=== PATIENT | male | born 1970 | race Caucasian/White ===

== ENCOUNTER → 2019-08-25 10:56 | Outpatient (CLI) | payer OTHER, SELFPAY ==
--- NOTE | 2019-08-25 | XR_ITS ---
PROCEDURE: XR CHEST 2V CLINICAL HISTORY: COMPARISON: No exams were available for comparison FINDINGS: The cardiomediastinal silhouette and pulmonary vascularity are within normal limits. The lungs are clear without infiltrates, suspicious nodules, or pleural effusions. No acute bony abnormalities. IMPRESSION: No acute findings. Dictated by: Alcides Cox 08/25/2019 12:59 Electronically signed by Alcides Cox in [facility] 08/25/2019 12:59
== END ==
PROVIDERS: PCP Nurse Practitioner Family; Visit Provider Nurse Practitioner Family
DX: R05 Cough (principal)
CPT/HCPCS: 71046

== ENCOUNTER → 2019-11-12 12:28 | Outpatient (POV) | payer OTHER, SELFPAY | PROVIDERS: PCP Nurse Practitioner Family; Visit Provider Specialist | DX: M79.605 Pain in left leg (principal); M79.604 Pain in right leg; M54.5 Low back pain | CPT/HCPCS: 95886; 95909 ==

== ENCOUNTER → 2019-11-12 12:32 | Outpatient (CLI) | payer OTHER, SELFPAY ==
[2019-11-12 15:10] LABS: Chloride 99 mmol/L (98-107); Potassium 4.4 mmoL/L (3.5-5.1); Sodium 132 mmol/L (136-145)
[2019-11-12 15:13] LABS: Blood Urea Nitrogen 24 mg/dl (9-20); Estimated Glomerular Filt Rate 90 ml/min (>60); GFR (African American) 109 ML/MIN (>60)
[2019-11-12 15:14] LABS: Anion Gap 11.4 mEq/L (5-15); Calcium 9.7 mg/dl (8.4-10.2); Carbon Dioxide 26 mmol/L (22.0-30.0); Glucose 111 mg/dl (74-100)
== END ==
PROVIDERS: Visit Provider Specialist
DX: L81.3 Cafe au lait spots (principal); M54.5 Low back pain; M79.604 Pain in right leg; M79.605 Pain in left leg
CPT/HCPCS: 36415; 80048

== ENCOUNTER → 2019-11-12 14:20 | Outpatient (CLI) | payer OTHER, SELFPAY ==
--- NOTE | 2019-11-12 14:20 | MR_ITS ---
PROCEDURE: MR LUMBAR SPINE WO/W CON CLINICAL INDICATION: evaluation for fibroma, nerve entrapment Low back pain with bilateral leg pain and tingling, nerve entrapment COMPARISON: XR CHEST 2V from 08/25/2019 TECHNIQUE: Standard multiplanar multiecho sequences are performed without contrast. 3-D MIP and myelographic images are also rendered and reviewed FINDINGS: The spinal cord ends at the L1-L2 level. There is normal alignment. L1-L2: Unremarkable. L2-L3: Unremarkable. L3-L4: Unremarkable. L4-5: Degenerative disc disease with bulging disc with facet and ligamentum hypertrophy. There is bilateral lateral recess and foraminal narrowing. There is transverse narrowing of the canal at 9 mm. The bulging disc is slightly eccentric toward the left. There is moderate bilateral foraminal narrowing slightly greater on the left. L5-S1: Degenerative disc disease with endplate hypertrophic change. There is minimal retrolisthesis of L5 the with lipping of the posterior inferior aspect of the L5 vertebral body at with bulging disc osteophyte complex. There is moderate facet and ligamentum hypertrophy with resultant severe bilateral foraminal narrowing with impingement upon the exiting L5 nerve roots. There is narrowing of the canal at this level. The the there is severe bilateral foraminal narrowing slightly greater on the left.. There is severe bilateral lateral recess narrowing slightly greater on the right No extruded herniated disc is evident No abnormal enhancement IMPRESSION: 1. L4-5: Degenerative disc disease with bulging disc with facet and ligamentum hypertrophy. There is bilateral lateral recess and foraminal narrowing. There is transverse narrowing of the canal at 9 mm. The bulging disc is slightly eccentric toward the left. There is moderate bilateral foraminal narrowing slightly greater on the left. 2. L5-S1: Degenerative disc disease with endplate hypertrophic change. There is minimal retrolisthesis of L5 the with lipping of the posterior inferior aspect of the L5 vertebral body at with bulging disc osteophyte complex. There is moderate facet and ligamentum hypertrophy with resultant severe bilateral foraminal narrowing with impingement upon the exiting L5 nerve roots. There is narrowing of the canal at this level. The the there is severe bilateral foraminal narrowing slightly greater on the left.. There is severe bilateral lateral recess narrowing slightly greater on the right 3. No extruded herniated disc. Dictated by: Juan Preeira MD 11/14/2019 15:32 Electronically signed by Juan Pereira MD in [facility] 11/14/2019 15:32
== END ==
PROVIDERS: PCP Nurse Practitioner Family; Visit Provider Specialist
DX: L81.3 Cafe au lait spots (principal); M54.5 Low back pain; M79.604 Pain in right leg; M79.605 Pain in left leg
CPT/HCPCS: 72158; 76376; A9576

== ENCOUNTER 2020-01-02 11:00 | Outpatient (RCR) | payer OTHER, SELFPAY | END 2020-01-10 16:23 | disposition home or self-care (01) | LOC: PT.CARL 11:00 | PROVIDERS: PCP Nurse Practitioner Family; Visit Provider Neurological Surgery | DX: M54.9 Dorsalgia, unspecified (principal); M47.819 Spondylosis without myelopathy or radiculopathy, site unspecified; M54.16 Radiculopathy, lumbar region | CPT/HCPCS: 97010; 97012; 97014; 97110; 97140; 97163; G0283 ==

== ENCOUNTER 2020-09-09 18:01 | Emergency (ER) | payer MEDICAID, SELFPAY ==
[2020-09-09 18:02] VITALS: BP 159/95; PULSE 64; RESP 16; TEMP 36.6; O2SAT 98; BMI 31.4
--- NOTE | 2020-09-09 18:10 | ECG_ITS ---
APPROVED REPORT Exam: Resting ECG HR:57 bpm ECG Measurements Heart Rate 57 AXES ND 186 P 49 QRSd 94 QRS -23 QT 412 T 38 QTc 401 Conclusion Sinus bradycardia Otherwise normal ECG Electronically signed by : Adan Lee, 09/10/2020 10:18:37
--- NOTE | 2020-09-09 18:10 | XR_ITS ---
PROCEDURE: XR CHEST 2V CLINICAL HISTORY: Chest pain COMPARISON: CR XR CHEST 2V from 08/25/2019 FINDINGS: The cardiomediastinal silhouette and pulmonary vascularity are within normal limits. The lungs are clear without infiltrates, suspicious nodules, or pleural effusions. There is slight elevation of the right hemidiaphragm. This is not significantly changed. No acute bony findings. IMPRESSION: No acute findings. Dictated by: Juan Pereira MD 09/10/2020 06:09 Juan Pereira MD in [facility] 09/10/2020 06:09
[2020-09-09 18:25] LABS: Basophils # 0.1 K/mm3 (0-0.2); Basophils % 0.5 % (0.1-2.0); Eosinophils # 0.2 K/mm3 (0.0-0.4); Hematocrit 44.7 % (42.0-52.0); Hemoglobin 14.9 g/dL (14.1-18.0); Lymphocytes # 2.8 K/mm3 (0.7-4.5); Mean Corpuscular HGB Conc 33.4 g/dL (31.8-35.4); Mean Corpuscular Hemoglobin 28.5 pg (27.0-31.2); Mean Corpuscular Volume 85.3 fl (80-94); Mean Platelet Volume 6.5 fl (7.4-10.4); Monocytes # 0.7 K/mm3 (0.1-1.0); Monocytes % 6.4 % (1.7-9.3); Neutrophils # 6.4 K/mm3 (1.8-7.8); Platelet Count 315 K/mm3 (142-424); Red Blood Count 5.23 M/mm3 (4.60-6.20); Red Cell Distribution Width 13.2 % (11.5-17.5); White Blood Count 10.2 K/mm3 (4.8-10.8)
[2020-09-09 18:27] LABS: Chloride 104 mmol/L (98-107); Sodium 139 mmol/L (136-145)
[2020-09-09 18:28] LABS: Potassium 3.9 mmoL/L (3.5-5.1)
[2020-09-09 18:31] LABS: Anion Gap 10.9 mEq/L (5-15); Blood Urea Nitrogen 17 mg/dl (9-20); Calcium 9.4 mg/dl (8.4-10.2); Carbon Dioxide 28 mmol/L (22.0-30.0); Creatinine Clearance Estimated 130 mL/min (50-200); Estimated Glomerular Filt Rate 102 ml/min (>60); GFR (African American) 124 ML/MIN (>60); Glucose 106 mg/dl (74-100)
[2020-09-09 18:32] VITALS: BP 157/88; PULSE 70; RESP 15; O2SAT 97
--- NOTE | 2020-09-09 18:45 | HMH.EDGENADL ---
ED Disposition Condition on Discharge: Good - Critical Care Critical Care Time: No <BrentjoieLv - Last Filed: 09/09/20 20:09> <Gregory Rhodes - Last Filed: 09/09/20 21:33> Clinical Impression: Chest pain Qualifiers: Chest pain type: unspecified Qualified Code(s): R07.9 - Chest pain, unspecified Cholelithiasis Qualifiers: Cholelithiasis location: gallbladder Cholecystitis presence: without cholecystitis Biliary obstruction: without biliary obstruction Qualified Code(s): K80.20 - Calculus of gallbladder without cholecystitis without obstruction Disposition: Home, Self-Care Instructions: DI for Atypical Chest Pain Additional Instructions: see pcp for follow up Referrals: Kassandra Knox [Primary Care Provider] - Attestation: On 09/09/20, the high probability of a clinically significant, sudden or life threatening deterioration of the following system(s) required my full and direct attention, intervention and personal management. The time I documented below is in addition to time spent performing reported procedures but includes the following listed in this critical care notation. Medical Decision Making - Ibrahima Inquiry Pt receiving controlled substance: No - Lab Data Result diagrams: 09/09/20 18:03 09/09/20 18:03 - NATALIIA Score for Non-Stemi Age of Patient: 50-59 years old Heart Rate: 50-69 bpm Systolic Blood Pressure: 140-159 mmHg Serum Creatinine: 0.80-1.19 mg/dl CHF [place] Class: I-No CHF Other Risk Factors: None Non-Stemi Risk Score: 75 <BrentjoieLv - Last Filed: 09/09/20 20:09> - Lab Data Lab results reviewed: Yes: I reviewed the patient's lab results. Result diagrams: 09/09/20 18:03 09/09/20 18:03 - CT Data CT Scan: Chest Time Received: 21:[address] Reviewed: Yes: I have viewed the radiologist's interpretation Preliminary Findings: Normal/NAD <Gregory Rhodes - Last Filed: 09/09/20 21:33> Vital Signs: 09/09/20 18:02 09/09/20 18:32 09/09/20 19:00 Temperature 98 F Temperature Source Oral Pulse Rate [Right Radial] 64 70 59 L Respiratory Rate 16 15 17 Blood Pressure [Right Arm] 159/95 H 157/88 H 166/99 H Blood Pressure Mean [Right Arm] 116 111 121 Blood Pressure Source [Right Arm] Automatic Cuff Automatic Cuff Blood Pressure Position [Right Arm] Supine Supine 02 Sat by Pulse Oximetry 98 97 97 Oxygen Delivery Method Room Air Room Air 09/09/20 19:30 09/09/20 20:00 Temperature Temperature Source Pulse Rate [Right Radial] 60 60 Respiratory Rate 18 15 Blood Pressure [Right Arm] 157/104 H 160/97 H Blood Pressure Mean [Right Arm] 121 118 Blood Pressure Source [Right Arm] Automatic Cuff Automatic Cuff Blood Pressure Position [Right Arm] Supine Supine 02 Sat by Pulse Oximetry 98 96 Oxygen Delivery Method Room Air Room Air - Lab Data Lab Results 09/09/20 18:03: WBC 10.2, RBC 5.23, Hgb 14.9, Hct 44.7, MCV 85.3, MCH 28.5, MCHC 33.4, RDW 13.2, Plt Count 315, MPV 6.5 L, Neut % (Auto) 63.0, Lymph % (Auto) 28.0, [place] % (Auto) 6.4, Eos % (Auto) 2.0, Baso % (Auto) 0.5, Neut # (Auto) 6.4, Lymph # (Auto) 2.8, [place] # (Auto) 0.7, Eos # (Auto) 0.2, Baso # (Auto) 0.1 09/09/20 18:03: Sodium 139, Potassium 3.9, Chloride 104, Carbon Dioxide 28, Anion Gap 10.9, BUN 17, Creatinine 0.80, Estimated Creat Clear 130, Estimated GFR 102, Est GFR ( Amer) 124, Glucose 106 H, Calcium 9.4, Troponin I < 0.01 09/09/20 18:08: D-Dimer 0.79 H Orders (Tests/Meds): ED MEDICATIONS Generic Name Dose Route Start Last Admin Trade Name Freq PRN Reason Stop Dose Admin Nitroglycerin 0.4 mg 09/09/20 18:10 Nitroglycerin 0.4mg Sl Tablet SL 09/10/20 18:10 [id number] PRN Chest Pain Discontinued Medications Generic Name Dose Route Start Last Admin Trade Name Freq PRN Reason Stop Dose Admin Aspirin 324 mg 09/09/20 18:10 09/09/20 18:36 Aspirin 81mg Chewable Tablet PO 09/09/20 18:11 324 mg ONCE ONE Administration Iopamidol 70 ml 09/09/20 20:37 09/09/20
[2020-09-09 18:47] LABS: Troponin I < 0.01 ng/ml (0.00-0.034)
[2020-09-09 19:00] VITALS: BP 166/99; PULSE 59; RESP 17; O2SAT 97
[2020-09-09 19:30] VITALS: BP 157/104; PULSE 60; RESP 18; O2SAT 98
[2020-09-09 19:45] LABS: D-Dimer 0.79 ug/mL (0.0-0.5)
[2020-09-09 20:00] VITALS: BP 160/97; PULSE 60; RESP 15; O2SAT 96
--- NOTE | 2020-09-09 20:05 | CT_ITS ---
PROCEDURE: CT ANGIO CHEST CLINCIAL INDICATION: cp, elevated d-dimer Chest pain, elevated D-dimer COMPARISON: No exams were available for comparison TECHNIQUE: IV Contrast: 70ML Isovue 370 Axial images obtained with sagittal and coronal reformats. All CT scans at the facility use one or more dose reduction, viz: automated exposure control, ma/kV adjustment per patient size (including targeted exams where dose is matched to indication, i.e. head), or iterative reconstruction technique. FINDINGS: HEART AND MEDIASTINAL STRUCTURES: No evidence of pulmonary embolus, aortic aneurysm, or aortic dissection. There is mild generalized thickening of the esophagus. LUNGS AND PLEURAL SPACES: Calcified granuloma left lower lobe BONY STRUCTURES: No acute bony abnormalities apparent. UPPER ABDOMEN: Cholelithiasis. There is mild haziness of the mesenteric fat centrally. Colonic diverticulosis. ADDITIONAL FINDINGS: No other significant abnormalities.No evidence of pulmonary embolus, aortic aneurysm, or aortic dissection.No evidence of pulmonary embolus, aortic aneurysm, or aortic dissection.. Mild nonspecific thickening of the esophagus. IMPRESSION: 1. No evidence of pulmonary embolus, aortic aneurysm, or aortic dissection. 2. Cholelithiasis. 3. Mild nonspecific thickening of the esophagus. Dictated by: Juan Pereira MD 09/10/2020 09:02 Juan Pereira MD in [facility] 09/10/2020 09:02
[2020-09-09 21:34] LABS: Troponin I < 0.01 ng/ml (0.00-0.034)
[2020-09-09 21:53] VITALS: BP 154/70; PULSE 65; RESP 16; TEMP 36.8; O2SAT 98
== END 2020-09-09 21:54 | disposition home or self-care (01) ==
PROVIDERS: Emergency Provider Emergency Medicine; PCP Nurse Practitioner Family
DX: K80.20 Calculus of gallbladder without cholecystitis without obstruction (principal); K21.9 Gastro-esophageal reflux disease without esophagitis; E78.5 Hyperlipidemia, unspecified; I10 Essential (primary) hypertension; F33.1 Major depressive disorder, recurrent, moderate
CPT/HCPCS: 71046; 71275; 80048; 84484; 85025; 85378; 93005; 96374; 99284; Q9967

== ENCOUNTER → 2020-09-27 07:17 | Outpatient (CLI) | payer MEDICAID, SELFPAY ==
[2020-09-27 09:07] LABS: Coronavirus 19 IgG Antibody Negative (Negative); Coronavirus 19 IgM Antibody Negative (Negative)
== END ==
PROVIDERS: Visit Provider Internal Medicine Gastroenterology
DX: Z01.818 Encounter for other preprocedural examination (principal); Z20.822 Contact with and (suspected) exposure to COVID-19; Z12.11 Encounter for screening for malignant neoplasm of colon
CPT/HCPCS: 36415; 86328

== ENCOUNTER 2020-09-29 09:31 | Day surgery (SDC) | payer MEDICAID, SELFPAY ==
[2020-09-29 10:07] VITALS: BP 169/83; PULSE 50; RESP 18; TEMP 36.2; O2SAT 100
[2020-09-29 10:44] VITALS: O2SAT 97
--- NOTE | 2020-09-29 10:59 | P.PCN_ITS ---
[facility] Procedure Note Procedure Note:: Upper Endoscopy Procedure Report: Esophagogastroduodenoscopy with cold biopsies Endoscopost: Tesfaye Novoa II, MD Referring Physician: BRITTANY Gonzalez Date of Procedure: September 29, 2020 Equipment: Olympus GIF 190 standard upper endoscope Sedation: MAC sedation Indications: Mr. Baez is a 50-year-old gentleman who is here for high risk upper endoscopy secondary to family history of stomach cancer. His brother had gastric cancer at the age of 45. The patient reports no heartburn, reflux, dysphagia, indigestion or dyspepsia. He has had no weight loss or melena. Procedure: Prior to the procedure, a history and physical exam was performed, and patient's medications and allergies were reviewed. The risks, benefits and alternatives of the sedation and procedure were discussed with the patient. All questions were answered and informed consent was obtained. The patient was brought to the procedure room. Patient identification and proposed procedure were verified by the physician and the nurse. The patient was placed in a left lateral decubitus position and the scope was passed under direct vision. Throughout the procedure, the patient's blood pressure, pulse, and oxygen saturations were monitored continuously. The upper GI endoscopy was accomplished without difficulty. The patient tolerated the procedure well. Findings: The scope was passed directly into the upper esophagus and advanced to the third portion of the duodenum. The post bulbar duodenum and duodenal bulb were normal with normal mucosa and conniventes. The scope was withdrawn through a normal duodenal bulb and pylorus into the stomach. There was some very mild chronic gastritis of the body and fundus (type A gastritis). Upon retroflexion there was no hiatal hernia. 2 biopsies were taken in the antrum and along the lesser curvature for histology to rule out gastritis and/or H pylori. The scope was then withdrawn into the esophagus. There was a single tongue of salmon- colored mucosa in the distal esophagus that was biopsied to rule out short segment Beltran's esophagus. The remainder of the esophageal mucosa was normal. Impression: 1. Possible short segment Beltran's esophagus 2. Mild chronic gastritis (type A gastritis) Plan: I will follow-up the biopsies. If there is evidence of short segment Beltran's esophagus I would continue surveillance at a 5-year interval. I would also recommend long-term PPI therapy. Also, based upon his family history, I will exclude H. pylori (risk factor for gastric cancer) with these gastric biopsies.
--- NOTE | 2020-09-29 11:17 | HMH.PROC ---
[facility] Procedure Note Procedure Note:: Colonoscopy Procedure Report: Colonoscopy Endoscopist: Tesfaye Novoa II, MD Referring physician: BRITTANY Gonzalez Date of Procedure: September 29, 2020 Equipment: Olympus 190 variable stiffness pediatric colonoscope Sedation: MAC sedation Indication: Mr. Baez is a 50-year-old gentleman who is here for initial screening colonoscopy. He reports no abdominal pain, weight loss, change in his bowel habits or rectal bleeding. He reports no family history of colon cancer. His brother had gastric cancer at the age of 45. Procedure: Prior to the procedure, a history and physical exam was performed, and patient's medications and allergies were reviewed. The risks, benefits and alternatives of the sedation and procedure were discussed with the patient. All questions were answered and informed consent was obtained. The patient was brought to the procedure room. Patient identification and proposed procedure were verified by the physician and the nurse. The patient was placed in a left lateral decubitus position and the scope was passed under direct vision. Throughout the procedure, the patient's blood pressure, pulse, and oxygen saturations were monitored continuously. The colonoscopy was accomplished without difficulty. The patient tolerated the procedure well. Findings: On digital rectal examination there was normal rectal tone. There were no external hemorrhoids. The prostate was 2+, smooth, soft, symmetric without nodules. The colonoscope was introduced through the anal canal to the rectum and advanced to the cecum. The ileocecal valve and appendiceal orifice were identified. The scope was advanced a short distance into the ileum which appeared grossly normal. The scope was then withdrawn into the colon. The cecum, ascending and transverse colon and mucosa were grossly normal. There were scattered diverticuli throughout the descending and sigmoid colon (LEFT colon). The rectum itself was normal. Upon retroflexion within the rectum there were grade 1-2 internal hemorrhoids. The preparation was excellent throughout with [place] Preparation Score of 9. The cecal time was 10 minutes. Impression: 1. Left-sided diverticulosis 2. Grade 1-2 internal hemorrhoids Plan: The patient will not require screening/surveillance colonoscopy again for 10 years by ACS guidelines. I would encourage fiber supplementation on a long-term daily maintenance basis.
[2020-09-29 11:19] VITALS: BP 112/73; PULSE 60; RESP 12; TEMP 36.4; O2SAT 98
[2020-09-29 11:29] VITALS: BP 135/73; PULSE 50; RESP 16; O2SAT 99
[2020-09-29 11:39] VITALS: BP 155/77; PULSE 72; RESP 16; O2SAT 99
[2020-09-29 11:49] VITALS: BP 148/82; PULSE 50; RESP 16; TEMP 36.4; O2SAT 100
--- NOTE | 2020-09-29 15:15 | P.PN_ITS ---
[facility] Anesthesia Checklist - Patient Identification Patient Identification: Arm Band - Structural Data Admitted From: Home Planned Operative Procedure/s: Colonoscopy Consent for Planned Operative Procedure(s) Verified: Yes Verified Documents: Surgical Consent, History and Physical - NPO Status Verified Time NPO: 00:00 - Airway Assessment C-Spine Mobility Assessed: Yes TMJ Mobility Assessed: Yes Dentition: Good Dentition - Neurological Assessment Level of Consciousness: Awake, Alert Hx Seizures: No Numbness or tingling in extremities: No - Anesthesia Plan Anesthesia Risk discussed: Yes Anesthesia Plan: Verified ASA Class: III Anesthesia Type: MAC [facility] History I have reviewed the patient's past medical history: Yes Medical History: Reports:: Depression, Gastroesophageal Reflux Disease(GERD), Hyperlipidemia, Hypertension Denies:: Cancer, Diabetes Mellitus Type 1, Diabetes Mellitus Type 2, MRSA, Seizures *Have you ever received a pneumonia vaccine?: No *Have you received a flu vaccine this season?: Yes Anesthesia experience/problems:: NAC Other Surgeries: Yes: No Previous Surgery Amputation: No Fractures: No - *Social History Smoking Status: Never smoker Alcohol Intake: never Substance Use Type: denies use *Occupational Status:: employed Housing: house Household Members: spouse *Travel in the last 8 weeks: None - Psychiatric History Pschychiatric History:: Reports:: Depression Family Hx:: Hypertension
== END 2020-09-29 11:59 | disposition home or self-care (01) ==
LOC: OUTP 09:32
PROVIDERS: PCP Nurse Practitioner Family; Visit Provider Internal Medicine Gastroenterology
PROC: 0DJD8ZZ Inspection of Lower Intestinal Tract, Via Natural or Artificial Opening Endoscopic (ICD-10-PCS; CPT 45378; principal; 2020-09-29 12:00)
DX: Z12.11 Encounter for screening for malignant neoplasm of colon (principal); K57.30 Diverticulosis of large intestine without perforation or abscess without bleeding; K64.0 First degree hemorrhoids; K22.9 Disease of esophagus, unspecified; K29.50 Unspecified chronic gastritis without bleeding; Z80.0 Family history of malignant neoplasm of digestive organs; I10 Essential (primary) hypertension; E78.5 Hyperlipidemia, unspecified; F32.9 Major depressive disorder, single episode, unspecified; K21.9 Gastro-esophageal reflux disease without esophagitis; Z79.899 Other long term (current) drug therapy
CPT/HCPCS: 43239; G0105

== ENCOUNTER → 2020-10-22 15:52 | Outpatient (CLI) | payer MEDICAID, SELFPAY ==
[2020-10-22 16:20] LABS: Basophils # 0.1 K/mm3 (0-0.2); Basophils % 0.6 % (0.1-2.0); Eosinophils # 0.2 K/mm3 (0.0-0.4); Eosinophils % 2.3 % (0.1-12.0); Hematocrit 45.1 % (42.0-52.0); Hemoglobin 15.1 g/dL (14.1-18.0); Lymphocytes # 2.3 K/mm3 (0.7-4.5); Lymphocytes % 23.1 % (10-50); Mean Corpuscular HGB Conc 33.5 g/dL (31.8-35.4); Mean Corpuscular Hemoglobin 28.4 pg (27.0-31.2); Mean Corpuscular Volume 84.9 fl (80-94); Mean Platelet Volume 6.9 fl (7.4-10.4); Monocytes # 0.7 K/mm3 (0.1-1.0); Monocytes % 6.9 % (1.7-9.3); Neutrophils # 6.6 K/mm3 (1.8-7.8); Neutrophils % 67.1 % (37.0-80.0); Platelet Count 310 K/mm3 (142-424); Red Blood Count 5.31 M/mm3 (4.60-6.20); Red Cell Distribution Width 12.7 % (11.5-17.5); White Blood Count 9.8 K/mm3 (4.8-10.8)
[2020-10-22 16:47] LABS: Alanine Aminotransferase 23 U/L (12-78); Albumin Level 4.3 g/dl (3.5-5.0); Albumin/Globulin Ratio 1.7 (1.1-1.8); Alkaline Phosphatase 74 U/L (38-126); Anion Gap 11.9 mEq/L (5-15); Aspartate Amino Transferase 27 U/L (17-59); Bilirubin,Total 0.4 mg/dl (0.2-1.3); Blood Urea Nitrogen 20 mg/dl (9-20); Calcium 9.3 mg/dl (8.4-10.2); Carbon Dioxide 28 mmol/L (22.0-30.0); Chloride 104 mmol/L (98-107); Estimated Glomerular Filt Rate 119 ml/min (>60); GFR (African American) 144 ML/MIN (>60); Globulin 2.6 g/dL (1.3-3.2); Glucose 101 mg/dl (74-100); Potassium 3.9 mmoL/L (3.5-5.1); Sodium 140 mmol/L (136-145); Total Protein,Serum 6.9 g/dl (6.3-8.2)
[2020-10-22 18:52] LABS: Coronavirus 19 IgG Antibody Negative (Negative); Coronavirus 19 IgM Antibody Negative (Negative)
== END ==
PROVIDERS: Visit Provider Surgery
DX: Z01.812 Encounter for preprocedural laboratory examination (principal); K80.20 Calculus of gallbladder without cholecystitis without obstruction; Z11.52 Encounter for screening for COVID-19
CPT/HCPCS: 36415; 80053; 85025; 86328

== ENCOUNTER 2020-10-24 07:49 | Day surgery (SDC) | payer MEDICAID, SELFPAY ==
[2020-10-24] VITALS (12 sets, daily range): BP systolic 98–167; BP diastolic 64–81; PULSE 55–85; RESP 10–18; TEMP 36.3–43; O2SAT 92–98; BMI 30.9
--- NOTE | 2020-10-24 08:24 | P.PN_ITS ---
[facility] Anesthesia Checklist - Structural Data Admitted From: Home Planned Operative Procedure/s: [facility] [place] Consent for Planned Operative Procedure(s) Verified: Yes - Additional verifications Anesthesia Reactions: No Hx Blood Transfusions: No Blood Transfusion Reaction: No - Airway Assessment C-Spine Mobility Assessed: Yes TMJ Mobility Assessed: Yes Dentition: Poor Dentition - Neurological Assessment Level of Consciousness: Awake, Alert, Appropriate - Anesthesia Plan Anesthesia Risk discussed: Yes Anesthesia Plan: Verified ASA Class: II Anesthesia Type: General [facility] History I have reviewed the patient's past medical history: Yes Medical History: Reports:: Depression, Gastroesophageal Reflux Disease(GERD), Hyperlipidemia, Hypertension Denies:: Cancer, Diabetes Mellitus Type 1, Diabetes Mellitus Type 2, MRSA, Seizures *Have you ever received a pneumonia vaccine?: No *Have you received a flu vaccine this season?: Yes Other Medical History: Denies: Blood Transfusion Reaction Anesthesia experience/problems:: none Other Surgeries: Yes: No Previous Surgery, Colonoscopy, EGD Amputation: No Fractures: No - *Social History Last grade of school completed: High school graduate Smoking Status: Never smoker Alcohol Intake: never Substance Use Type: denies use *Occupational Status:: employed Housing: house Household Members: spouse *Travel in the last 8 weeks: None - Psychiatric History Pschychiatric History:: Reports:: Depression Family Hx:: Hypertension
--- NOTE | 2020-10-24 10:08 | HMH.OPNOTE ---
Date of procedure: 10/24/20 Pre-op Diagnosis:: Symptomatic cholelithiasis Post-op Diagnosis:: Chronic calculus cholecystitis Procedure performed:: Laparoscopic cholecystectomy Surgeon:: Stefan Mendoza MD OCCUPATIONAL THERAPY TECHNICIAN:: Patrick Moreland Anesthesia: GETLaure Estimated blood loss (mL): 10 Operative findings:: Infundibular thickening Operative note:: After informed consent was obtained, the patient was taken to the operating room and placed in the supine position. General anesthesia was induced and the abdomen was prepped and draped in a sterile fashion. After infiltration with local anesthetic an infraumbilical incision was made. A Veress needle was placed in position. The abdomen was insufflated. A 5 mm optical trocar was placed in position. Under direct visualization, a 12 mm trocar was placed in the subxiphoid position and 2 additional 5 mm trocars were placed in the right upper quadrant. The gallbladder was elevated up and over the liver margin. The tissue around the cystic duct was carefully dissected. 3 clips were placed proximally and the duct was transected with harmonic rodrick. Harmonic rodrick were then utilized to dissect the gallbladder away from the liver margin with careful attention to the control of the cystic artery. The gallbladder was placed in a retrieval bag and removed through the subxiphoid trocar site. The right upper quadrant was thoroughly irrigated. No active bleeding or bile leak was noted. Fascia at the subxiphoid trocar site was reapproximated utilizing the NeoClose device. 0 Ethibond was also utilized secondary to gaps status post NeoClose use. The remaining trocars were removed. All wounds were irrigated and skin was closed with 4-0 Monocryl in a subcuticular fashion. Steri-Strips were applied. The patient's anesthetic agents were reversed and extubation was completed prior to transfer to recovery in stable condition. Condition: stable Disposition: PACU Specimens:: Gallbladder Complications:: No immediate
--- NOTE | 2020-10-24 10:15 | HMH.ANESI ---
[facility] Anesthesia Record Part I Intake, IV Amount: 1,000 Estimated blood loss (mL): 10 Urine output (mL): 0 Blood Pressure: 98/69 SaO2: 92 Pulse Rate: 57 Respiratory Rate: 16 Temperature: 99.4 F Patient is:: Drowsy, Stable Stable to PACU at:: 10:10
--- NOTE | 2020-10-24 13:25 | HMH.ANESII ---
[facility] Anesthesia Record Part II Discharge Time: 10:40 Destination: Surgical Day Care (OP Surgery) PACU nurse assessment reviewed?: Yes Patient Condition:: Good Anesthesia Complications:: None Swallowing reflex intact?: Yes Cyanosis?: No Blood Pressure: 117/71 Pulse Rate: 85 Temperature: 97.3 F Mental Status: Alert & Oriented Pain level:: 0 Nausea and/or vomitting:: None Intake, IV Amount: 0
== END 2020-10-24 11:15 | disposition home or self-care (01) ==
LOC: OR 07:51
PROVIDERS: PCP Nurse Practitioner Family; Visit Provider Surgery
PROC: 0FT44ZZ Resection of Gallbladder, Percutaneous Endoscopic Approach (ICD-10-PCS; CPT 47562; principal; 2020-10-24 09:30)
DX: K80.10 Calculus of gallbladder with chronic cholecystitis without obstruction; F32.9 Major depressive disorder, single episode, unspecified; K21.9 Gastro-esophageal reflux disease without esophagitis; E78.5 Hyperlipidemia, unspecified; I10 Essential (primary) hypertension; Z82.49 Family history of ischemic heart disease and other diseases of the circulatory system; Z79.899 Other long term (current) drug therapy
CPT/HCPCS: 47562; 96374; J2405; J2710

== ENCOUNTER 2021-04-07 16:57 | Emergency (ER) | payer MEDICAID, SELFPAY ==
--- NOTE | 2021-04-07 17:15 | XR_ITS ---
PROCEDURE INFORMATION: Exam: XR Right Hand Exam date and time: 04/07/2021 5:15 PM Age: 51 years old Clinical indication: Right; Patient HX: Swelling with pain through out hand; . No known injury TECHNIQUE: Imaging protocol: XR Right hand. Views: 3 or more views. COMPARISON: No relevant prior studies available. FINDINGS: Bones/joints: Mild degenerative changes in the 1st-4th metacarpophalangeal joints and multiple distal interphalangeal joints with tiny osteophyte formation. Subchondral cystic change in the 1st metacarpophalangeal joint, likely degenerative. No acute fracture or malalignment. No osseous erosions. Soft tissues: Soft tissue edema noted. No abnormal soft tissue calcifications. No radiopaque foreign body or subcutaneous emphysema. IMPRESSION: 1. No acute osseous abnormality in the right hand. 2. Mild polyarticular degenerative changes compatible with degenerative osteoarthritis.
[2021-04-07 17:56] VITALS: BP 144/90; PULSE 75; RESP 17; TEMP 36.9; O2SAT 98; BMI 32.5
--- NOTE | 2021-04-07 18:16 | HMH.EDUTC ---
[facility] [place] Disposition Clinical Impression: Hand pain Qualifiers: Laterality: right Qualified Code(s): M79.641 - Pain in right hand Disposition: Home, Self-Care Condition on Discharge: Good Instructions: DI for Chronic Pain -- Adult, Sprain, How To Perform RICE (Rest, Ice, Compress, Elevate), How to Apply an Paresh Wrap Additional Instructions: *RICE, Rest the extremity, Ice 15-20 minutes 3-4 times daily, Compress- wear the paresh wrap as discussed as much as possible to help reduce swelling and pain, Elevate the extremity when at rest *Paresh wrap is for support and help control swelling, use it except in the shower. Be sure that is not to tight but not to loose either *Elevate when resting *Ibuprofen every 6-8 hours as needed for pain an inflammation. If need something more can take Tylenol in between doses of Ibuprofen to help Immediately follow up with your family doctor for new or worsening of symptoms, or no noticeable improvement over the next 3-5 days Follow up with your Family Doctor if no improvement or immediately if any worsening of symptoms Watch area for signs of infection such as redness or warmth and follow up immediately if seen Return if needed Straight to ER if any life threatening symptoms Referrals: Kassandra Knox [Primary Care Provider] - As needed Time of Disposition: 18:23 Medical Decision Making - Ibrahima Inquiry Pt receiving controlled substance: No Ibrahima was queried for this patient: No Vital Signs: 04/07/21 17:56 Temperature 98.4 F Temperature Source Oral Pulse Rate [Left] 75 Respiratory Rate 17 Blood Pressure [Right Arm] 144/90 H Blood Pressure Mean [Right Arm] 108 02 Sat by Pulse Oximetry 98 - Radiology Data #1 Image(s): Hand Image Reviewed: Yes I have reviewed radiologist's interpretation IMPRESSION: 1. No acute osseous abnormality in the right hand. 2. Mild polyarticular degenerative changes compatible with degenerative osteoarthritis. [facility] [place] HPI - General Stated complaint: AO [id number] Injured R Hand Time Seen by Provider: 04/07/21 18:16 Mode of Arrival: Ambulatory Source of Information: Patient Limitations: No Limitations Description of Symptoms (Recalled from Triage Doc. by RN): pt c/o his R hand being swollen and painful. pt states there has been no injury. 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 States that he noticed he was having pain in his right hand with some swelling but doesnt recall hurting it States that today it was still swollen and hurt some when he would make a fist so he came in to get it checked - Related Data Home Medications Medication Instructions Recorded Confirmed atorvastatin 40 mg tablet 40 mg PO DAILY tab 11/05/19 01/21/21 losartan 50 mg tablet 50 mg PO DIRECTED tab 11/05/19 01/21/21 omeprazole 40 mg capsule,delayed 40 mg PO DAILY cap 11/05/19 01/21/21 release paroxetine HCl 30 mg tablet 30 mg PO DAILY tab 03/04/20 01/21/21 Diclofenac Sodium [Diclofenac 75mg 75 mg PO BID 09/09/20 01/21/21 Tab] Allergies Allergy/AdvReac Type Severity Reaction Status Date / Time No Known Allergies Allergy Verified 01/21/21 09:08 - Worker's Comp Is this a Worker's Comp case?: No [facility] History - Hepatitis A Screen Drug use history?: No High risk sexual behaviors?: No History of sexually transmitted infection?: No Currently employed?: No Childcare worker?: No Do you have indoor plumbing?: Yes Do you have electricity?: Yes Attestation statement:: This patient has been screened for Hepatitis A risk factors. I have reviewed the patient's past medical history: Yes Medical History: Reports:: Depression, Gastroesophageal Reflux Disease(AGUS
[2021-04-07 18:25] VITALS: BP 144/90; PULSE 75; RESP 17; TEMP 36.9
== END 2021-04-07 18:29 | disposition home or self-care (01) ==
PROVIDERS: Emergency Provider Nurse Practitioner; PCP Nurse Practitioner Family
DX: M79.641 Pain in right hand (principal); K21.9 Gastro-esophageal reflux disease without esophagitis; I10 Essential (primary) hypertension; E78.5 Hyperlipidemia, unspecified; F33.1 Major depressive disorder, recurrent, moderate; Z79.899 Other long term (current) drug therapy
CPT/HCPCS: 73130; 99202; G0463

== ENCOUNTER 2021-09-29 10:21 | Outpatient (RCR) | payer MEDICAID, SELFPAY | END 2021-09-29 11:30 | disposition home or self-care (01) | LOC: OT 10:21 | PROVIDERS: Visit Provider Orthopaedic Surgery | DX: G56.01 Carpal tunnel syndrome, right upper limb (principal) | CPT/HCPCS: 97763 ==